=== PATIENT | female | born 1960 | race Caucasian/White ===

== ENCOUNTER 2023-04-13 12:34 | Emergency (ER) | payer OTHER, MEDICAID, SELFPAY ==
[2023-04-13] VITALS (62 sets, daily range): BP systolic 76–142; BP diastolic 45–93; PULSE 82–115; RESP 16–34; TEMP 36.6–36.9; O2SAT 92–100; BMI 23.3
--- NOTE | 2023-04-13 12:48 | DI.RAD.S_ITS ---
PROCEDURE: XR WRIST LT MIN 3V INDICATIONS: L wrist deformity TECHNIQUE: 3 views of the wrist were acquired. COMPARISON: None. FINDINGS: Bones: Intra-articular fracture of the radial styloid, with apex volar angulation. Displaced ulnar styloid fracture. Scaphoid view: Not requested. Soft tissues: No suspicious soft tissue calcifications. IMPRESSION: Intra-articular, apex volar angulation fracture of the radial styloid. Displaced ulnar styloid fracture. Dictated by: Reymundo Johnson M.D. on 04/13/2023 at 13:36 Approved by: Reymundo Johnson M.D. on 04/13/2023 at 13:37
[2023-04-13] MEDS: HYDROMORPHONE 0.5 MG INJ IV (13:44)
[2023-04-13] MEDS: TET,DIPH,PERTUSS(ACELL),VAC/PF 0.5 ML SYRINGE IM (13:45)
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
[2023-04-13] MEDS: CEFAZOLIN 2 GM/100 ML PREMIX 100 ML IV (13:52)
--- NOTE | 2023-04-13 14:53 | DI.CT.S_ITS ---
PROCEDURE: CT UE LT WO CON INDICATIONS: wrist fracture. TECHNIQUE: Noncontrast 1 mm axial sections acquired through the carpal bones, with coronal and sagittal reformats. COMPARISON: None. FINDINGS: Image quality: Excellent. Bones: Comminuted impacted fracture of the distal radius with fracture lines extending into the radiocarpal and distal radioulnar joints. Fracture lines extend throughout the distal radius and make 2 large fragments 1 along the dorsal aspect and 1 along the volar aspect both subluxed slightly secondary to radial impaction. Moderately displaced ulnar styloid fracture. Bones of the hand appear intact. Carpocarpal joints appear anatomically aligned. Soft tissues: Inflammatory changes/small hemorrhage throughout the wrist most prominent along the dorsal ulnar superficial soft tissues and thenar eminence. IMPRESSION: Severely comminuted intra-articular distal radial fracture with impaction. Dictated by: Obinna Ritter M.D. on 04/13/2023 at 14:18 Approved by: Obinna Ritter M.D. on 04/13/2023 at 14:22
--- NOTE | 2023-04-13 15:05 | P.HP_ITS ---
History of Present Illness History of Present Illness Date Patient Seen: 04/13/23 Time Patient Seen: 15:06 Date of Onset of Symptoms: 04/13/23 Chief complaint: L wrist deformity Narrative: This is a 62-year-old female who lives in [place] who fell on her left wrist and noted the onset of left wrist pain and deformity. She is currently staying in an [employer] temporarily an anechoic mortise. She normally lives in [place]. She is right-hand dominant. She has a known history of significant peripheral neuropathy in bilateral lower extremities. She does have difficulty walking secondary to that. She does not note severe numbness in her left wrist. [facility] Social History Smoking Status: Never smoker Meds Home Medications and Allergies Allergies Allergy/AdvReac Type Severity Reaction Status Date / Time latex Allergy Intermediate Hives Verified 04/13/23 13:51 Penicillins Allergy Intermediate Hives Verified 04/13/23 13:39 Review of Systems Review of Systems Narrative: She was not short of breath or lightheaded prior to the fall. Exam Vital Signs (past 8 hours): - 04/13/23 12:37 04/13/23 12:38 04/13/23 12:38 Temperature Pulse Rate 95 H 90 Respiratory Rate Blood Pressure 113/55 L Pulse Oximetry 99 100 Oxygen Delivery Method 04/13/23 12:43 04/13/23 13:03 04/13/23 13:35 Temperature 98.4 F Pulse Rate 82 96 H 94 H Respiratory Rate 16 Blood Pressure 113/55 L Pulse Oximetry 100 93 100 Oxygen Delivery Method Room Air Room Air 04/13/23 13:43 04/13/23 13:43 04/13/23 14:00 Temperature Pulse Rate 90 97 H Respiratory Rate Blood Pressure 139/86 Pulse Oximetry 100 100 Oxygen Delivery Method Room Air Oxygen Delivery Method Room Air Narrative Exam Narrative: HEENT is benign, lungs are clear cor regular rate and rhythm examination of her left upper extremity shows a small laceration on the ulnar aspect of her wrist there is obvious deformity of her left wrist with swelling both in the wrist in the hand, she can fire fingers flexors and extensors Assessment & Plan Assessment and plan (1) Fracture of distal radius and ulna: Status: Acute Plan She has a significantly shortened and deformed left distal radius fracture. Potentially she is a candidate for open reduction internal fixation. I recommended a CT scan for further evaluation of her left wrist. I told her it would be reasonable to consider fixation of her wrist within the next 1-2 weeks. She has a small abrasion on the ulnar aspect of her wrist but it does not look like an open fracture. She normally lives in [place] think it is fine for her to follow-up with an orthopedic surgeon [place]. She potentially could undergo operative fixation of her left wrist this coming week or the following week at [facility]. Her cell phone is currently not working. She can give our office a call for follow-up or provide us with a working phone number. Her CT scan is currently pending.
[2023-04-13] MEDS: propofoL 200 MG/20 ML VIAL 80 MG IV (16:24)
[2023-04-13] MEDS: SODIUM CHLORIDE 0.9% 250 ML 1000 ML IV (16:31)
--- NOTE | 2023-04-13 16:34 | DI.RAD.S_ITS ---
PROCEDURE: XR WRIST LT MIN 3V INDICATIONS: post reduc TECHNIQUE: 3 views of the wrist were acquired. COMPARISON: [facility], , XR WRIST LT MIN 3V, 04/13/2023, 12:56. FINDINGS: Bones: Comminuted intra-articular impacted fracture of the distal radius in improved position. Cast material overlies the osseous structures limiting detail. Unchanged moderately displaced ulnar styloid fracture. Soft tissues: No suspicious soft tissue calcifications. IMPRESSION: Improved alignment of comminuted distal radial fracture. Unchanged position of ulnar styloid fracture. Dictated by: Obinna Ritter M.D. on 04/13/2023 at 16:05 Approved by: Obinna Ritter M.D. on 04/13/2023 at 16:08
[2023-04-13] MEDS: OXYCODONE/APAP 5/325 PREPACK 1 BOTTLE MISC (18:30)
--- NOTE | 2023-04-13 18:44 | PC.NURSE ---
1800: Ambulation trial of patient. Pt used own walking stick with this RN and RN student Nell at side. Steady on feet with use of her own cane. Pt denied any chest pain or SOB. Provider made aware.
== END 2023-04-13 18:40 | disposition home or self-care (01) ==
PROVIDERS: Emergency Provider Emergency Medicine
DX: S52.502A Unspecified fracture of the lower end of left radius, initial encounter for closed fracture (principal); S52.609A Unspecified fracture of lower end of unspecified ulna, initial encounter for closed fracture; W17.89XA Other fall from one level to another, initial encounter; Z23 Encounter for immunization
CPT/HCPCS: 25605; 29125; 36415; 73110; 73200; 90471; 96365; 96375; 99152; 99284; 99285; 90715; J0690; J1170; J2704

== ENCOUNTER 2023-04-14 02:10 | Emergency (ER) | payer OTHER, MEDICAID, SELFPAY ==
--- NOTE | 2023-04-14 02:25 | ED.RECABL ---
HPI - Recheck/Abnormal Lab/Rx General Stated Complaint: wants to be rechecked lt arm injury Time Seen by Provider: 04/14/23 02:13 History of Present Illness HPI narrative: Patient is a 62-year-old female with history of chronic alcohol use who was discharged earlier today around 7:00 p.m. after she was diagnosed with a left wrist fracture. She required procedure sedation and reduction. Orthopedics was consulted she will require surgical repair in the next 1-2 weeks. She presents this evening looking for a place to stay. She is here with a new physician friend they just met a few hours ago. This new friend is trying to help her. Apparently when the patient left the ED she went to her house only to find an eviction notice. She has an ID but it is lost her mixed in with her belongings. She was driven to the police station they made a report they helped her find a hotel room but unfortunately she has a cat and she did not have an ID. The friend is distraught about the system and inability to help the homeless. She is concerned with her T-shirt and sandals although they have all of her belongings in her car including close and probably ID. She has no increased pain in her left wrist she has a sling it is properly splinted no other medical complaints have come up. Patient is frustrated but mostly the person with her is more frustrated. Related Data Previous Rx's Medication Instructions Recorded oxycodone 5 mg tablet 5 mg PO QID PRN pain #14 tabs 04/13/23 Allergies Allergy/AdvReac Type Severity Reaction Status Date / Time latex Allergy Intermediate Hives Verified 04/13/23 13:51 Penicillins Allergy Intermediate Hives Verified 04/13/23 13:39 Patient History Social History Smoking Status: Never smoker Smoking Status: Never smoker alcohol intake frequency: 3 or more drinks per day Alcohol type: hard liquor Substance Use Type: marijuana Exam Initial Vital Signs Initial Vital Signs: GENERAL: Alert well-appearing 62-year-old female CARDIOVASCULAR: peripheral pulses in tact, cap refill <2 sec RESPIRATORY: No respiratory distress, speaks in full sentences without difficulty EXTREMITIES: Normal range of motion, no clubbing or edema. Neurovascularly intact Left upper extremity cap refill less than [address] NEUROLOGICAL: Cranial nerves II through XII grossly intact. Normal gait and speech. SKIN: Warm, dry, no petechiae, no rashes or lesions. Right foot chronic pressure ulcer MDM - Recheck/Abnormal Lab/Rx MDM Narrative Medical decision making narrative: At this time there are no medical complaints cap refill in left upper extremity less than 2 seconds she is not complaining of pain. Sounds is other been many options tonight for halfway which included a hotel room. They have just not been able to sort through her belongings to find her ID suggested that they do that now they have all of her clothing in the back of the car recommended that she put some on. She was offered to stay in the lobby of the information systems security officer was okay for it but does not need emergency department monitoring. At this time she is medically cleared and has had a medical screening exam no evidence of compartment syndrome. Discharge Plan Departure Patient Disposition: Home Clinical Impression: Feared complaint without diagnosis Activity Restrictions/Additional Instructions: *You have been diagnosed with left wrist fracture *Continue to take medications as directed *Follow up with your primary care provider in 2-3 days or call [phone] *Return to ER if you should have any new, worsening or concerning symptoms Prescriptions: No Action oxycodone 5 mg tablet 5 mg PO QID PRN (Reason: pain) Qty: 14 0RF Stand Alone Forms: Patient Portal/API
[2023-04-14 02:33] VITALS: BP 161/102; PULSE 113; RESP 15; TEMP 37.6; O2SAT 100
--- NOTE | 2023-04-14 02:38 | PC.NURSE ---
pt does not have complaint about her arm at this time. Has good cap refill. pt wants to stay in ER because she got evicted last night and couldn't get into hotel room.
== END 2023-04-14 02:43 | disposition home or self-care (01) ==
PROVIDERS: Emergency Provider Emergency Medicine
DX: Z71.1 Person with feared health complaint in whom no diagnosis is made (principal)
CPT/HCPCS: 99281; 99282

== ENCOUNTER 2023-04-21 22:35 | Emergency (ER) | payer OTHER, MEDICAID, SELFPAY ==
[2023-04-21 22:40] VITALS: BP 134/76; PULSE 88; RESP 18; TEMP 36.7; O2SAT 100; BMI 21.7
--- NOTE | 2023-04-21 22:59 | ED_ITS ---
HPI - Recheck/Abnormal Lab/Rx General Chief Complaint: Recheck/Abnormal Lab/Rx Stated Complaint: Left arm injury Time Seen by Provider: 04/21/23 22:59 Source: patient Mode of arrival: Ambulatory History of Present Illness HPI narrative: Patient 62-year-old female history of alcohol abuse, polyneuropathy, bilateral footdrop, ascending aortic aneurysm, bilateral lower edema extremity, methamphetamine abuse, who has a fractured left wrist presenting today with splint problem. She initially was seen and evaluated here on April 13 where she had a procedure sedation she was evaluated by orthopedics Dr. Crews she returned later that night for social problem. She was seen evaluated yesterday at [facility] where she was seen due to increased pain. She would removed the splint thinking that it was a removable splint the skin was noted to be mildly erythematous she actually had blood work x-rays and given a dose of Rocephin. She was written a prescription for Keflex. She is yet to apple picker her pain medication her antibiotic. Orthopedics [facility] was consulted at the time a dose of Rocephin and antibiotics was reasonable she did not have fever or leukocytosis. She is supposed to follow-up with Dr. Crews at some point. Unclear if she has made any sort of contact with Dr. Crews. Is later reported in the notes that patient went to [facility] primarily because the bar which she was going to to manage her pain with alcohol refused to continue to serve her as they felt like her arm was getting worse and it needed medical attention. She is here today because the Niraj wrap around her splint was coming off. Related Data Previous Rx's Medication Instructions Recorded oxycodone 5 mg tablet 5 mg PO QID PRN pain #14 tabs 04/13/23 Allergies Allergy/AdvReac Type Severity Reaction Status Date / Time latex Allergy Intermediate Hives Verified 04/21/23 22:40 Penicillins Allergy Intermediate Hives Verified 04/21/23 22:40 Patient History Social History Smoking Status: Never smoker Smoking Status: Never smoker alcohol intake frequency: 3 or more drinks per day Alcohol type: hard liquor Substance Use Type: marijuana Exam Initial Vital Signs Initial Vital Signs: Vital Signs Temperature 98.1 F 04/21/23 22:40 Pulse Rate 88 04/21/23 22:40 Respiratory Rate 18 04/21/23 22:40 Blood Pressure 134/76 04/21/23 22:40 Pulse Oximetry 100 04/21/23 22:40 Oxygen Delivery Method Room Air 04/21/23 22:40 GENERAL: Alert 62-year-old female CARDIOVASCULAR: peripheral pulses in tact, cap refill <2 sec RESPIRATORY: No respiratory distress, speaks in full sentences without difficulty EXTREMITIES: Normal range of motion, no clubbing or edema. Neurovascularly intact Left upper extremity cap refill less than [address] NEUROLOGICAL: Cranial nerves II through XII grossly intact. Steady gait no slurring of speech SKIN: Warm, dry, no petechiae, no rashes or lesions. Course Orders Ordered: Discontinued Medications Aspirin (Aspirin 81 Mg Chew Tab) 324 mg PO NOW ONE Stop: 04/21/23 23:05 Cefazolin Sodium (Cephalexin 250 Mg Cap Prepack) 1 bottle MISC SEEINSTR ONE Stop: 04/21/23 23:17 Last Admin: 04/21/23 23:29 Dose: 1 bottle Documented By: ES Sodium Chloride (Normal Saline 0.9%) 1,000 mls @ 150 mls/hr IV CONT SHASHANK Methylprednisolone (Methylprednisolone 125 Mg/2 Ml Vial) 125 mg IV NOW ONE Stop: 04/21/23 23:05 Pantoprazole Sodium (Pantoprazole 40 Mg Vial) 40 mg IV NOW ONE Stop: 04/21/23 23:05 Vital Signs Vital signs: Vital Signs - 8 hr 04/21/23 22:40 Temperature 98.1 F Pulse Rate 88 Respiratory Rate 18 Blood Pressure 134/76 Pulse Oximetry 100 Oxygen Delivery Method Room Air MDM - Recheck/Abnormal Lab/Rx MDM Narrative Medical decision making narrative: Patient is 62-year-old female who presents today with noncompliance with left wrist fracture. She is not picked up pain feels antibiotics she is not followed up with Orthopedics. She presents today with needing her Niraj wrap rewrapped. She had blood work and x-ray and antibiotics done yesterday I received and reviewed records. Patient's vitals are stable no evidence of sepsis she is afebrile she appears well at least clinically sober. At this time she is given a prepack of Keflex I have not unwrapped the splint to look at it. I have discussed with her that that she must take some responsibility at least apple picker the antibiotics that were prescribed to her. And follow up with Orthopedics. She understands. She also knows she is not supposed to remove the splint. Discharge Plan Departure Patient Disposition: Home Clinical Impression: Fracture of left wrist, Cellulitis Instructions: Wrist Fracture Activity Restrictions/Additional Instructions: *You have been diagnosed with wrist fracture *What to do: Keep splint, wear sling as needed it will help, elevate and ice. You must follow-up with orthopedics as scheduled *Continue to take medications as directed Keflex-apple picker your prescriptions that was already sent to [facility] *Follow up with your primary care provider in 2-3 days or call [phone] Follow-up with orthopedics *Return to ER if you should have any new, worsening or concerning symptoms Prescriptions: No Action oxycodone 5 mg tablet 5 mg PO QID PRN (Reason: pain) Qty: 14 0RF Referrals: [facility] [Provider Group] Fela Crews MD [Physician] - Stand Alone Forms: Patient Portal/API
[2023-04-21] MEDS: cephALEXin 250 MG CAP PREPACK 1 BOTTLE MISC (23:29)
== END 2023-04-21 23:31 | disposition home or self-care (01) ==
PROVIDERS: Emergency Provider Emergency Medicine
DX: L03.114 Cellulitis of left upper limb (principal); S62.102D Fracture of unspecified carpal bone, left wrist, subsequent encounter for fracture with routine healing; X58.XXXD Exposure to other specified factors, subsequent encounter
CPT/HCPCS: 99281; 99283